=== PATIENT | male | born 1990 | race Caucasian/White ===

== ENCOUNTER 2016-08-14 18:41 | Outpatient (CLI) | payer OTHER | END 2016-08-14 18:42 | disposition home or self-care (01) | DX: R09.89 Other specified symptoms and signs involving the circulatory and respiratory systems (principal) ==

== ENCOUNTER 2016-09-26 08:45 | Day surgery (SDC) | payer OTHER ==
[2016-09-26] MEDS ORDERED: ceFAZolin 2 GM/50 ML 50 ML IV ONE (08:46)
[2016-09-26] MEDS ORDERED: LACTATED RINGERS 1,000 ML IV ONE ×2 (09:21→13:35)
[2016-09-26] MEDS ORDERED: MIDAZOLAM 2 MG/2 ML VIAL IVP ONE (10:12)
[2016-09-26] MEDS ORDERED: KETOROLAC 30 MG/ML VIAL IVP ONE (10:12)
[2016-09-26] MEDS ORDERED: LIDOCAINE-MPF 2% 5 ML VIAL IM ONE (10:12)
[2016-09-26] MEDS ORDERED: ONDANSETRON 4 MG/2 ML VIAL IVP ONE (10:12)
[2016-09-26] MEDS ORDERED: fentaNYL 100 MCG/2 ML VIAL IVP ONE (10:12)
[2016-09-26] MEDS ORDERED: PROPOFOL 200 MG/20 ML VIAL IVP ONE (10:12)
[2016-09-26] MEDS ORDERED: DEXAMETHASONE 4 MG/ML VIAL IVP ONE (10:12)
[2016-09-26] MEDS ORDERED: BUPIVACAINE 0.25%-EPI 1:200000 PF 10 ML VIAL SUBQ ONE ×2 (10:14→11:45)
[2016-09-26] MEDS ORDERED: fentaNYL 100 MCG/2 ML VIAL ONE (12:11)
[2016-09-26] MEDS ORDERED: oxyCOD/ACETAMIN 5 MG/325 MG TABLET PO ONE (12:55)
--- NOTE | 2016-09-26 13:26 | OPERATIVE REPORT ---
DATE OF SURGERY: 09/26/2016 00:00:00 TIME: 12 PREOPERATIVE DIAGNOSIS: Bilateral inguinal hernias with right larger than left, and the right of a ve ry large size. POSTOPERATIVE DIAGNOSES 1. Bilateral inguinal hernias with right larger than left, and the right of a very large size. 2. Bilateral cord lipoma. NAME OF PROCEDURES 1. Bilateral inguinal herniorrhaphy with mesh. Mesh used were both the same; Bard mesh PerFix plug, r eference #[id number], lot #[id number], use by date is 2021-05-20. 2. Bilateral excision of cord lipoma. SURGEON: Jerson Khan MD ANESTHESIA: Welsh (LMA) with 60 mL of 0.25% Marcaine. FINDINGS: As above. COMPLICATIONS: None. ESTIMATED BLOOD LOSS: Less than 5 mL. DETAILS OF PROCEDURE: After informed consent was obtained detailing the risks of infection, bleeding with all of its risks including transfusion, hematoma, ecchymosis, and , the patient was brought to the operative suite and placed supine on the operating room table. General anesthesia via an LMA was induced by Dr. Welsh, and Dr. Welsh provided anesthesia care for the entirety of the case. The jarad ent received preoperative antibiotics for prophylaxis against surgical infection. The patient had HOA s and Venodynes placed for prophylaxis against deep venous thrombosis. The patient was prepped and dr isabel in the usual standard manner. At this point, a time-in was done that confirmed the patient's daniel ntity via 3 separate identifiers including his name, medical record number, date, we also confi rmed the procedure being performed, confirmed that the history and physical was in the chart, confirm ed that the consent was in the chart and signed, and confirmed that we had the personnel equipment re quired to perform the procedure. With the agreement of everyone in the room, the operation was allowe d to proceed. The right side was addressed first. A standard right inguinal incision was made and dissection was ca rried down past Yaya fascia to the external oblique fascia. The large sized hernia had attenuated t he external oblique fascia to some degree. This was incised initially with a knife and this incision was carried on down to the external ring using Metzenbaum scissors. The cord structures were then enc ircled at the area of the pubic tubercle using my fingers, and then replaced my fingers with a Penros e drain. This was used to retract the cord contents laterally and medially as needed. Examination of the floor revealed the floor to be intact, albeit a little bit weak. Examination of the cord found th e expected very large right inguinal hernia sac. The sac measured at least 19 cm in length. This was dissected free from the cord structures, as was a large cord lipoma. This was done using a combinatio n of Metzenbaum scissors, Bovie electrocautery, as well as traction and countertraction. Once the lip lauren was dissected down to the internal ring, it was high ligated using a 0 Vicryl suture ligature. Th e lipoma was transected and there was no bleeding noted to be coming from the stump. Once the large i ndirect sac was also brought to the internal ring, it also was opened to make sure that there was not orly in the sac and high ligated at the internal ring using an 0 Vicryl suture ligature. This was tra nsected and the stump was examined for bleeding, which there was none. This was then allowed to retra ct back into the abdomen. At this point, a large mesh PerFix plug was obtained and inserted into the internal ring. This was th en secured to the internal ring using interrupted 0 PDS sutures. The onlay patch was then obtained, s ecured to the pubic tubercle using an 0 PDS "U" stitch, and then secured superiorly to the conjoint t endon and inferiorly to the shelving edge of Poupart ligament with interrupted 0 PDS sutures. In this manner, the floor of the inguinal canal was repaired/buttressed. The area was examined for hemostasi s and there was meticulous hemostasis present. The Miller drain was removed, and the external obliqu e was then sewn over the cord contents using a running 3-0 Vicryl suture. In this manner, I recreated the internal ring. The Yaya fascia was approximated using a single 3-0 Vicryl suture. The skin was approximated using a 4-0 Monocryl in a running subcuticular fashion. Please note that at all levels of the case, on the right-hand side, 30 mL of 0.25% Marcaine were injected at the skin, subcutaneous and deeper levels for long-term anesthetic control. With the wound closed, attention was then directe d to the left-hand side. The left-hand side was repaired exactly the same as the right-hand side. In fact, the lot number of t he mesh is exactly the same, the only difference being that the left inguinal hernia sac was smaller and the cord lipoma itself was smaller. Otherwise, there are no substantive changes. With the patient having had both sides repaired, he subsequently had the LMA removed and was taken to recovery room in good and stable condition having tolerated this procedure well. JOB #: [id number] EXT JOB #:[id number]
[2016-09-26 14:14] VITALS: BP 156/78
== END 2016-09-26 08:46 | disposition home or self-care (01) ==
LOC: SDS 08:45
PROVIDERS: ATTEND Surgery
PROC: 0VB Male Reproductive System, Excision (ICD-10-PCS; 2016-09-26)
PROC: 0YUA0JZ Supplement Bilateral Inguinal Region with Synthetic Substitute, Open Approach (ICD-10-PCS; principal; 2016-09-26 10:00)
DX: K40.20 Bilateral inguinal hernia, without obstruction or gangrene, not specified as recurrent (principal); D17.6 Benign lipomatous neoplasm of spermatic cord; F17.210 Nicotine dependence, cigarettes, uncomplicated
CPT/HCPCS: 49505; 55520; A9270; C1781; J0690; J7120